=== PATIENT | male | born 1950 | race Caucasian/White ===

== ENCOUNTER 2021-02-09 11:00 | Emergency (ER) | payer MEDICARE, BC ==
[2021-02-09] MEDS ORDERED: Sodium Chloride 0.9% 10 ML Syringe FLUSH PRN (11:38)
[2021-02-09] MEDS ORDERED: Ondansetron 4 MG/2 ML SDV IVPUSH ONE (11:39)
[2021-02-09] MEDS ORDERED: fentaNYL 100 MCG/2 ML SDV IVPUSH ONE (11:39)
--- NOTE | 2021-02-09 11:41 | EDM.PDOC ---
ED HPI GENERAL MEDICAL PROBLEM - General Chief Complaint: Gastrointestinal Problem Stated Complaint: STOMACH UPSET Time Seen by Provider: 02/09/21 11:34 Source of Information: Reports: Patient, Family, RN Notes Reviewed History Limitations: Reports: No Limitations - History of Present Illness INITIAL COMMENTS - FREE TEXT/NARRATIVE: 70-year-old gentleman presents emergency department day complaint of abdominal pain, he states it started 3 days prior initially thought he may had some food poisoning he had pretty severe diarrhea several bouts per day and then this morning he developed nausea and vomiting with dry heaves. No fevers no shortness of breath no chest pains - Related Data Allergies Allergy/AdvReac Type Severity Reaction Status Date / Time No Known Allergies Allergy Verified 02/09/21 11:26 Home Meds: Home Meds Ketorolac [Toradol] 10 mg PO TID PRN #20 tab 02/09/21 [Rx] Tamsulosin [Tamsulosin 24 Hr] 0.4 mg PO DAILY #30 cap.er 02/09/21 [Rx] Past Medical History Musculoskeletal History: Reports: Back Pain, Chronic, Fracture Other Musculoskeletal History: back surgery - Infectious Disease History Other Infectious Disease History: Covid october - Past Surgical History GI Surgical History: Reports: Cholecystectomy Musculoskeletal Surgical History: Reports: Knee Replacement, Shoulder Surgery Other Musculoskeletal Surgeries/Procedures:: wrist Social & Family History - Tobacco Use Tobacco Use Status *Q: Never Tobacco User ED ROS GENERAL - Review of Systems Review Of Systems: See Below Constitutional: Denies: Fever, Chills HEENT: Reports: No Symptoms Respiratory: Reports: No Symptoms Cardiovascular: Reports: No Symptoms GI/Abdominal: Reports: Abdominal Pain, Diarrhea, Nausea, Vomiting : Reports: No Symptoms ED EXAM, GI/ABD - Physical Exam Exam: See Below Exam Limited By: No Limitations General Appearance: Alert, WD/WN, No Apparent Distress Ears: Normal External Exam, Normal Canal, Hearing Grossly Normal, Normal TMs Respiratory/Chest: No Respiratory Distress, Lungs Clear, Normal Breath Sounds, No Accessory Muscle Use, Chest Non-Tender Cardiovascular: Regular Rate, Rhythm, No Murmur GI/Abdominal Exam: Normal Bowel Sounds, Soft, Distended, Tender (Generalized tenderness to palpation) Course - Vital Signs Last Recorded V/S: Last Vital Signs Temp 97.8 F 02/09/21 11:24 Pulse 74 02/09/21 11:24 Resp 16 02/09/21 11:24 BP 157/98 H 02/09/21 11:24 Pulse Ox 95 02/09/21 11:24 - Orders/Labs/Meds Orders: Active Orders 24 hr Category Date Time Status Peripheral IV Care [RC] . DIRECTED Care 02/09/21 11:38 Active Lactated Ringers [Ringers, Lactated] 1,000 ml Med 02/09/21 11:45 Active IV ASDIRECTED Sodium Chloride 0.9% [Saline Flush] Med 02/09/21 11:38 Active 10 ml FLUSH ASDIRECTED PRN Peripheral IV Insertion Adult [OM.PC] Urgent Oth 02/09/21 11:38 Ordered Medication Orders Lactated Ringer's (Ringers, Lactated) 1,000 mls @ 999 mls/hr IV ASDIRECTED EUGENIO Last Admin: 02/09/21 12:43 Dose: 999 mls/hr Documented by: JAYANT Sodium Chloride (Sodium Chloride 0.9% 10 Ml Syringe) 10 ml FLUSH ASDIRECTED PRN PRN Reason: Keep Vein Open Last Admin: 02/09/21 12:43 Dose: 10 ml Documented by: JAYANT Labs: Laboratory Tests 02/09/21 02/09/21 02/09/21 Range/Units 11:46 11:46 11:46 WBC 8.8 (4.5-11.0) K/uL RBC 5.21 (4.30-5.90) M/uL Hgb 15.9 H (12.0-15.0) g/dL Hct 46.6 (40.0-54.0) % MCV 89 (80-98) fL MCH 31 (27-31) pg MCHC 34 (32-36) % Plt Count 210 (150-400) K/uL Neut % (Auto) 82.2 H (36-66) % Lymph % (Auto) 8.8 L (24-44) % [place] % (Auto) 8.4 H (2-6) % Eos % (Auto) 0.3 L (2-4) % Baso % (Auto) 0.3 (0-1) % Sodium 139 L (140-148) mmol/L Potassium 4.0 (3.6-5.2) mmol/L Chloride 101 (100-108) mmol/L Carbon Dioxide 28 (21-32) mmol/L Anion Gap 14.0 (5.0-14.0) mmol/L BUN 18 (7-18) mg/dL Creatinine 1.2 (0.8-1.3) mg/dL Est Cr Clr Drug Dosing 53.83 mL/min Estimated GFR (MDRD) 60 (>60) Glucose 124 H (74-106) mg/dL Lactic Acid 1.5 (0.4-2.0) mmol/L Calcium 8.3 L (8.5-10.1) mg/dL Total Bilirubin 1.3 H (0.2-1.0) mg/dL AST 29 (15-37) U/L ALT 18 (12-78) U/L Alkaline Phosphatase 62 (46-116) U/L Troponin I < 0.017 (0.000-0.056) ng/mL Total Protein 6.9 (6.4-8.2) g/dL Albumin 3.0 L (3.4-5.0) g/dL Globulin 3.9 H (2.3-3.5) g/dL Albumin/Globulin Ratio 0.8 L (1.2-2.2) Lipase 114 (73-393) U/L Meds: Medications Generic Name Dose Route Start Last Admin Trade Name Freq PRN Reason Stop Dose Admin Lactated Ringer's 1,000 mls @ 999 mls/hr 02/09/21 11:45 02/09/21 12:43 Ringers, Lactated IV 999 mls/hr ASDIRECTED EUGENIO Administration Sodium Chloride 10 ml 02/09/21 11:38 02/09/21 12:43 Sodium Chloride 0.9% 10 Ml Syringe FLUSH 10 ml ASDIRECTED PRN Administration Keep Vein Open Discontinued Medications Generic Name Dose Route Start Last Admin Trade Name Freq PRN Reason Stop Dose Admin Fentanyl 50 mcg 02/09/21 11:39 02/09/21 11:54 Fentanyl 100 Mcg/2 Ml Sdv IVPUSH 02/09/21 11:40 50 mcg ONETIME ONE Administration Sodium Chloride 76 mls @ 3 mls/sec 02/09/21 11:45 Normal Saline IV 02/09/21 11:46 ASDIRECTED EUGENIO Iopamidol 118 ml 02/09/21 11:45 Iopamidol 612 Mg/Ml 150 Ml Bottle IV 02/09/21 11:46 . DIRECTED EUGENIO Ketorolac Tromethamine 30 mg 02/09/21 13:08 02/09/21 13:14 Ketorolac 30 Mg/Ml Sdv IVPUSH 02/09/21 13:09 30 mg ONETIME ONE Administration Ondansetron HCl 4 mg 02/09/21 11:39 02/09/21 11:54 Ondansetron 4 Mg/2 Ml Sdv IVPUSH 02/09/21 11:40 4 mg ONETIME ONE Administration Sodium Chloride 10 ml 02/09/21 11:44 02/09/21 11:55 Sodium Chloride 0.9% 10 Ml Syringe FLUSH 02/09/21 11:45 10 ml ONETIME ONE Administration Departure - Departure Time of Disposition: 13:45 Disposition: Home, Self-Care 01 Condition: Fair Clinical Impression: Nephrolithiasis - Discharge Information Instructions: Kidney Stones, [id number] Referrals: PCP,None [Primary Care Provider] - Forms: ED Department Discharge Additional Instructions: Use Toradol as needed for pain control, use the Flomax daily to help increase your urinary stream. Try and strain your urine to capture the stone bring this to your primary care doctor it may reveal the etiology of your kidney stones. Please follow-up with your doctor in the next 5 to 7 days for reevaluation Sepsis Event Note (ED) - Evaluation Sepsis Screening Result: No Definite Risk - Focused Exam Vital Signs: Vital Signs Temp Pulse Resp BP Pulse Ox 02/09/21 11:24 97.8 F 74 16 157/98 H 95 - My Orders Last 24 Hours: My Active Orders 02/09/21 11:38 Peripheral IV Care [RC] . DIRECTED Sodium Chloride 0.9% [Saline Flush] 10 ml FLUSH ASDIRECTED PRN Peripheral IV Insertion Adult [OM.PC] Urgent 02/09/21 11:45 Lactated Ringers [Ringers, Lactated] 1,000 ml IV ASDIRECTED - Assessment/Plan Last 24 Hours: My Active Orders 02/09/21 11:38 Peripheral IV Care [RC] . DIRECTED Sodium Chloride 0.9% [Saline Flush] 10 ml FLUSH ASDIRECTED PRN Peripheral IV Insertion Adult [OM.PC] Urgent 02/09/21 11:45 Lactated Ringers [Ringers, Lactated] 1,000 ml IV ASDIRECTED Plan: Assessment Acuity = acute Site and laterality = left nephrolithiasis 4 mm Etiology = unknown Manifestations = abdominal pain, nausea vomiting Location of injury = Home Lab values = CBC, CMP, troponin, lactic acid all within normal limits CT scan describes stone above Plan Good relief with Toradol he will be discharged home with Toradol 10 mg 1 tab p.o. 3 times daily as needed to #20 and Flomax 0.4 mg 1 tab p.o. daily total #30 those medications faxed to [facility] pharmacy of follow-up with his primary care in 3 to 5 days if not better This note was dictated using [employer] voice recognition software please call with any questions on syntax or grammar.
[2021-02-09] MEDS ORDERED: Sodium Chloride 0.9% 10 ML Syringe FLUSH ONE (11:44)
[2021-02-09] MEDS ORDERED: Iopamidol 612 MG/ML 150 ML Bottle IV SCH (11:45)
[2021-02-09] MEDS ORDERED: Lactated Ringers 1,000 ML IV SCH (11:45)
--- NOTE | 2021-02-09 13:06 | CRLCT ---
For Patients: As a result of the Century Cures Act, medical imaging exams and procedure reports are released immediately into your electronic medical record. You may view this report before your referring provider. If you have questions, please contact your health care provider. INDICATION: Generalized abdominal pain. TECHNIQUE: CT of abdomen and pelvis performed without oral or IV contrast. FINDINGS: Moderate degenerate hypertrophic changes in the hips and diffusely in the spine. Moderate osteopenia. Small rounded sclerotic lesion L5 vertebral body. Mild atherosclerotic coronary artery calcification. Mild fibrosis and atelectasis in the lung bases most of which is platelike. Surgical clips in the scrotal region bilaterally. Cholecystectomy without significant biliary dilatation. 3-4 mm partially obstructing distal left ureteral stone within 2 cm of the left UVJ results in mild to moderate left ureteral dilatation, mild to moderate left hydronephrosis, and mild diffuse left perinephric and periureteral soft tissue stranding. No other urinary stones. Mild to moderate prostatic enlargement. Moderate diverticulosis. Much of the colon is nondistended causing its wall would be somewhat prominent. Few nonspecific air-fluid levels within nondilated small bowel loops in the abdomen. Urinary bladder is not well-distended likely accounting for its wall being mildly prominent. Remainder negative. IMPRESSION: 1. 3-4 mm partially obstructing left distal ureteral stone resulting in mild to moderate left-sided hydronephrosis and other findings of ureteral obstruction as noted above 2. Cholecystectomy without biliary dilatation. 3. Colonic diverticulosis without evidence diverticulitis. 4. Mild to moderate prostatic enlargement. Please note that all CT scans at this facility use dose modulation, iterative reconstruction, and/or weight-based dosing when appropriate to reduce radiation dose to as low as reasonably achievable. Dictated by Afshin Silva MD @ 02/09/2021 1:06:[address] Afshin Silva @ Feb 09 2021 1:06PM
[2021-02-09] MEDS ORDERED: Ketorolac 30 MG/ML SDV IVPUSH ONE (13:08)
== END 2021-02-09 13:55 | disposition home or self-care (01) ==
LOC: JP.ED 11:00
DX: N13.2 Hydronephrosis with renal and ureteral calculous obstruction (principal); Z86.16 Personal history of COVID-19
CPT/HCPCS: 36415; 74176; 80053; 83605; 83690; 84484; 85025; 96374; 96375; 99284; J1885; J2405; J3010; J7120